=== PATIENT | female | born 1995 | race Caucasian/White ===

== ENCOUNTER 2017-02-19 18:01 | Emergency (ER) | payer OTHER ==
[~2017-02-19] VITALS: Ht 165.1 cm; Wt 61.2 kg
[~2017-02-19 18:01] MED LIST: ALPRAZOLAM0.25 MG PO; CIPRO 500MG TA500 MG PO; DOXYCYCLINE100 MG PO; FIORICET 325 MG1 TAB PO; FLONASE120 SPRAY/ NASB; LAMICTAL200 MG PO; MOTRIN800 MG PO; MULTI VITAMINS1 TAB PO; SEROQUEL 25MG25 MG PO; TRAMADOL50 MG PO; TYLENOL #31 TAB PO; VICODIN5-300 PO; VYVANSE20 MG PO; XANAX1 MG PO
[2017-02-19 18:04] VITALS: BP 125/83
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
[2017-02-19] MEDS ORDERED: DEXTROAMP-AMPHE10 MG PO (18:25)
[2017-02-19] MEDS ORDERED: QUETIAPINE FUMA25 M1 PO (18:26)
[2017-02-19] MEDS ORDERED: ZOLPIDEM TARTRA10 M1 PO (18:26)
[2017-02-19] MEDS ORDERED: NORCO 5-325 TA1 EACH PO (18:28)
[2017-02-19] MEDS ORDERED: ZOFRAN4 M2 PO (18:28)
[2017-02-19] MEDS ORDERED: IBUPROFEN600 M1 PO (18:28)
== END 2017-02-19 18:51 ==
LOC: ERH 18:01
DX: S09.90XA Unspecified injury of head, initial encounter (principal); V89.2XXA Person injured in unspecified motor-vehicle accident, traffic, initial encounter; Y93.9 Activity, unspecified; Y92.488 Other paved roadways as the place of occurrence of the external cause